=== PATIENT | female | born 1955 | race Caucasian/White ===

== ENCOUNTER → 2017-08-30 | Outpatient (CLI) | payer BC | LOC: COL.VAS 13:30 | DX: M79.605 Pain in left leg (principal); Z82.49 Family history of ischemic heart disease and other diseases of the circulatory system ==

== ENCOUNTER → 2020-09-12 | Outpatient (CLI) | payer MEDICARE | LOC: MC.RAD 13:02 | DX: Z12.31 Encounter for screening mammogram for malignant neoplasm of breast (principal) ==

== ENCOUNTER → 2021-09-17 | Outpatient (CLI) | payer OTHER | LOC: MC.RAD 07:15 | DX: Z12.31 Encounter for screening mammogram for malignant neoplasm of breast (principal) ==

== ENCOUNTER → 2022-08-27 | Outpatient (CLI) | payer MEDICARE, OTHER | LOC: COL.RAD 10:22 | DX: K22.2 Esophageal obstruction (principal); K21.9 Gastro-esophageal reflux disease without esophagitis; K44.9 Diaphragmatic hernia without obstruction or gangrene ==

== ENCOUNTER → 2022-11-03 | Outpatient (CLI) | payer MEDICARE, OTHER ==
[~2022-11-03] VITALS: Ht 157.5 cm; Wt 107.5 kg
[~2022-11-03] MED LIST: COZAAR100 MG PO; HCTZ 25MG TAB25 MG PO; TOPROL XL 50MG50 MG PO; VESICARE 5MG5 MG PO
[2022-11-03 10:26] VITALS: BP 145/86; PULSE 53; TEMP 98.1
[2022-11-03 11:15] VITALS: BP 134/88; PULSE 62
== END ==
LOC: COL.RAD 09:41
DX: C15.5 Malignant neoplasm of lower third of esophagus (principal); E04.1 Nontoxic single thyroid nodule